=== PATIENT | male | born 1935 | race Caucasian/White ===

== ENCOUNTER 2017-08-29 09:48 | Outpatient (CLI) | payer MEDICARE, OTHER ==
[~2017-08-29] VITALS: Ht 162.6 cm; Wt 61.2 kg
[~2017-08-29 09:48] MED LIST: ACET-3068 PO; ASCO500C15 PO; CHOL200012 PO; CYAN250010 PO; MELA3TAB PO; METH100035 PO; METH10005 PO; MULT-1085 PO; OMEG1CAP PO; OMEP40CA37 PO; UBID100C PO; [UNRECOGNIZED DRUG - OTHER] PO
[2017-08-29 10:41] LABS: TOTAL HEMOGLOBIN 16.6 G/dl (14.0-18.0)
[2017-08-29] MEDS ORDERED: albuterol 2.5 MG/3 ML nebule NEB ONE (11:10)
== END 2017-08-29 23:59 | disposition home or self-care (01) ==
LOC: RT 09:48
PROVIDERS: ATTEND Internal Medicine Pulmonary Disease
DX: J84.112 Idiopathic pulmonary fibrosis (principal)
CPT/HCPCS: 85018; 94060; 94640; 94727; 94729; 94760; J7030

== ENCOUNTER 2020-05-01 08:27 | Emergency (ER) | payer MEDICARE, OTHER ==
[~2020-05-01] VITALS: Ht 160 cm; Wt 57.3 kg
[~2020-05-01 08:27] MED LIST changes: -ASCO500C15 PO; +ASCO500C18 PO; -MELA3TAB PO; +MELA3TAB39 PO; -METH100035 PO; +OMEP40CA13 PO; -OMEP40CA37 PO; -UBID100C PO; +UBID100C44 PO; +[UNRECOGNIZED DRUG - CODE] PO
[2020-05-01] MEDS ORDERED: sucralfate 1gm/10ml UD suspension PO STA (08:56)
[2020-05-01] MEDS ORDERED: LIDOcaine Viscous 15ml cup MM ONE (09:00)
[2020-05-01] MEDS ORDERED: mag hydrox/Alum hydrox/simeth 30ml oral suspension PO ONE (09:00)
[2020-05-01 09:01] LABS: BASOPHILS # (AUTO) 0.1 X10'3 (0-0.2); BASOPHILS % (AUTO) 0.6 % (0-1); EOSINOPHILS # (AUTO) 0.1 X10'3 (0-0.9); EOSINOPHILS % (AUTO) 0.6 % (0-6); HEMATOCRIT 43.3 % (42.0-52.0); HEMOGLOBIN 14.8 g/dl (14.0-17.9); LYMPHOCYTES # (AUTO) 0.5 X10'3 (1.1-4.8); LYMPHOCYTES % (AUTO) 5.1 % (21-51); MEAN CORPUSCULAR HEMOGLOBIN 34.4 PG (27.0-31.0); MEAN CORPUSCULAR HGB CONC 34.1 g/dL (33.0-36.5); MEAN CORPUSCULAR VOLUME 100.9 FL (78-98); MEAN PLATELET VOLUME 8.9 FL (7.4-10.4); MONOCYTES # (AUTO) 0.6 X10'3 (0-0.9); MONOCYTES % (AUTO) 5.1 % (2-12); NEUTROPHILS # (AUTO) 9.6 X10'3 (1.8-7.7); NEUTROPHILS % (AUTO) 88.6 % (42-75); PLATELET COUNT 245 X10'3 (140-440); RED BLOOD COUNT 4.29 X10'6 (4.70-6.10); WHITE BLOOD COUNT 10.8 X10'3 (4.5-11.0)
[2020-05-01 09:08] LABS: CLARITY,URINE CLEAR (Clear); COLOR,URINE YELLOW (Yellow); GLUCOSE, URINE NEGATIVE (Neg); KETONES,URINE NEGATIVE (Neg); LEUKOCYTE ESTERASE ,URINE NEGATIVE (Neg); NITRITES, URINE NEGATIVE (Neg); OCCULT BLOOD,URINE NEGATIVE (Neg); PROTEIN,URINE 30 mg/dl (Neg)
[2020-05-01 09:13] LABS: ALANINE AMINOTRANSFERASE 21 U/L (12-78); ALBUMIN 3.3 G/DL (3.4-5.0); ALBUMIN/GLOBULIN RATIO 0.7 (1.1-1.5); ALKALINE PHOSPHATASE 108 IU/L (46-116); ANION GAP 7 (8-16); ASPARTATE AMINO TRANSFERASE 22 U/L (10-37); BILIRUBIN,TOTAL 0.4 MG/DL (0.1-1.0); BLOOD UREA NITROGEN 12 MG/DL (7-18); CALCIUM 9.2 MG/DL (8.5-10.1); CHLORIDE 101 MMOL/L (99-107); GLUCOSE 123 MG/DL (70-104); LIPASE 186 U/L (73-393); POTASSIUM 3.7 MMOL/L (3.5-5.1); SODIUM 139 MMOL/L (135-145); TOTAL CARBON DIOXIDE 31.4 MMOL/L (24-32); TOTAL PROTEIN 7.8 G/DL (6.4-8.2); eGFR 72 ML/MIN
[2020-05-01 09:13] LABS: UA COLLECTION TYPE CLN CATCH MIDSTREAM
[2020-05-01 09:16] LABS: RBC,URINE NONE SEEN /HPF (0-2); WBC,URINE 0-4 /HPF (0-4)
[2020-05-01 09:17] LABS: BACTERIA,URINE NONE SEEN /HPF (Neg); MUCUS STRANDS FEW /LPF (Neg); SQUAMOUS EPITHELIAL CELL,UR NONE SEEN /LPF (FEW); URIC ACID CRYSTALS 1+ /HPF (NEGATIVE)
[2020-05-01] MEDS ORDERED: SUCR1ORA12 PO (09:52)
[2020-05-01] MEDS ORDERED: DEXL60CA3 PO (09:52)
[2020-05-01 10:07] VITALS: BP 142/80
[2020-05-01] MEDS ORDERED: PANT-47 PO (20:55)
== END 2020-05-01 10:10 | disposition home or self-care (01) ==
LOC: ER 08:28
DX: R10.13 Epigastric pain (principal); R10.10 Upper abdominal pain, unspecified; Z98.890 Other specified postprocedural states; Z88.5 Allergy status to narcotic agent; Z79.899 Other long term (current) drug therapy
CPT/HCPCS: 36415; 74176; 80053; 81001; 83690; 85025; 99284

== ENCOUNTER 2020-05-01 18:50 | Emergency (ER) | payer MEDICARE, OTHER ==
[~2020-05-01] VITALS: Ht 160 cm; Wt 57.2 kg
[~2020-05-01 18:50] MED LIST changes: +DEXL60CA3 PO; +SUCR1ORA12 PO
[2020-05-01 18:53] VITALS: BP 177/89
[2020-05-01] MEDS ORDERED: normal saline 1000ML IV soln IVB ONE (19:45)
[2020-05-01] MEDS ORDERED: proCHLORperazine 10 MG/2 ml inj IV ONE (19:45)
[2020-05-01] MEDS ORDERED: morphine 2 MG/ML inj. syringe IV ONE (19:45)
--- NOTE | 2020-05-01 19:46 | NUR ---
Pt is requesting morphine for pain, but he drove himself to the hospital
[2020-05-01] MEDS ORDERED: pantoprazole 40 MG vial IV ONE (20:10)
[2020-05-01] MEDS ORDERED: LORazepam 2 mg/ml vial IV ONE (20:30)
[2020-05-01] MEDS ORDERED: famotidine/PF 10 mg/ml inj IV ONE (20:30)
[2020-05-01] MEDS ORDERED: PANT-47 PO (20:55)
[2020-05-01] MEDS ORDERED: oxyCODONE IR 5mg (immed. release) tablet PO ONE (21:10)
--- NOTE | 2020-05-01 21:22 | NUR ---
Pt unable to stay awake while recieving discharge instructions. Oxy not administered.
[2020-05-01] MEDS ORDERED: acetaminophen 325mg tablet PO ONE (21:25)
== END 2020-05-01 21:37 | disposition home or self-care (01) ==
LOC: ER 18:51
DX: R10.13 Epigastric pain (principal); R11.2 Nausea with vomiting, unspecified; Z98.890 Other specified postprocedural states; Z88.5 Allergy status to narcotic agent; Z79.899 Other long term (current) drug therapy
CPT/HCPCS: 96374; 96375; 99284; C9113; J0780; J2060; J2270; J3490; J7030